=== PATIENT | male | born 1960 | race Caucasian/White ===

== ENCOUNTER 2019-09-28 13:50 | Outpatient (CLI) | payer BC, SELFPAY ==
--- NOTE | ~2019-09-28 | XR_ITS ---
EXAMINATION: XR chest 2V DATE: 09/28/2019 15:30 INDICATION: Hypertension. Preoperative evaluation. TECHNIQUE: PA and lateral views of the chest were obtained. COMPARISON: None FINDINGS: The lungs are clear with no focal airspace opacities, pulmonary edema, pleural effusion or pneumothor ax. The cardiomediastinal silhouette is normal. Multiple chronic appearing compression fractures in t he mid to lower thoracic spine. A few chronic right-sided rib fractures. Partially visualized screw f ixation at the right humeral head likely related to an additional old fracture. IMPRESSION: 1. No acute cardiopulmonary disease. Reviewed, dictated and finalized at location A.
--- NOTE | 2019-09-28 14:55 | ECG_ITS ---
Measurements Intervals [place] Rate: 76 P: 43 [place]: 188 QRS: 15 QRSD: 93 T: 21 QT: 340 QTc: 384 Interpretive Statements SINUS RHYTHM NONSPECIFIC T-WAVE ABNORMALITY- ANTERIOR LEADS BORDERLINE ECG Electronically Signed On 09-28-2019 15:43:30 CDT by Manoj Stroud D.O.
[2019-09-28 15:41] LABS: Basophils Percent Auto 0.8 % (0.2-1.2); Eosinophils Absolute Auto 0.5 K/mm3 (0-0.3); Eosinophils Percent Auto 9.1 % (0-4.4); Hematocrit 41.1 % (42.0-52.0); Hemoglobin 13.9 g/dL (14.0-18.0); Immature Granulocyte Absolute 0.01 K/mm3 (0.00-0.031); Immature Granulocyte Percent A 0.2 % (0-0.5); Lymphocytes Absolute Auto 1.27 K/mm3 (0.9-3.2); Lymphocytes Percent Auto 25.6 % (18.3-44.2); Mean Corpuscular HGB Conc 33.8 g/dl (32-36); Mean Corpuscular Volume 88.8 fl (80-100); Mean Platelet Volume 10.6 fl (7.4-10.4); Monocytes Absolute Auto 0.5 K/mm3 (0.1-0.6); Monocytes Percent Auto 9.7 % (2.6-8.5); Neutrophils Absolute Auto 2.7 K/mm3 (1.3-6.7); Neutrophils Percent Auto 54.6 % (45.5-73.1); Platelet Count Result 194 k/mm3 (150-375); Red Blood Count 4.63 M/mm3 (4.6-6.20); Red Cell Distribution Width 12.9 % (11.5-14.5)
[2019-09-28 15:51] LABS: Albumin Level 4.3 g/dL (3.5-5.1); Urine Cotinine NEGATIVE
[2019-09-28 15:53] LABS: Hemoglobin A1C 5.7 % (<5.7)
[2019-09-28 15:55] LABS: Blood Urea Nitrogen 24 mg/dL (9-20); Calcium 9.1 mg/dL (8.4-10.2); Carbon Dioxide 26 mmol/L (22-30); Chloride 104 mmol/L (98-107); Estimated Glomerular Filt Rate > 60; Glucose 103 mg/dL (75-110); Potassium 4.1 mmol/L (3.4-5.0); Sodium 137 mmol/L (137-145)
== END 2019-09-28 13:51 | disposition home or self-care (01) ==
LOC: ANHSURGERY 13:53
PROVIDERS: Anesthesiology; PCP Family Medicine; Visit Provider Orthopaedic Surgery
DX: Z01.818 Encounter for other preprocedural examination (principal); I10 Essential (primary) hypertension; M17.11 Unilateral primary osteoarthritis, right knee
CPT/HCPCS: 36415; 71046; 80048; 80307; 82040; 83036; 85025; 86850; 86900; 86901; 93005

== ENCOUNTER 2022-11-09 13:59 | Emergency (ER) | payer BC, SELFPAY ==
[2022-11-09 14:15] VITALS: BP 127/62; PULSE 81; RESP 16; TEMP 36.7; O2SAT 96
--- NOTE | 2022-11-09 14:48 | ECG_ITS ---
Measurements Intervals [place] Rate: 75 P: 29 [place]: 171 QRS: 16 QRSD: 101 T: 29 QT: 374 QTc: 419 Interpretive Statements SINUS RHYTHM BORDERLINE T WAVE ABNORMALITY- ANT/INF LEADS BASELINE ARTIFACT- I, II, AVR, AVL BORDERLINE ECG COMPARED TO ECG 09/28/2019 15:38:27 NO SIGNIFICANT CHANGES Electronically Signed On 11-09-2022 15:20:11 CDT by Manoj Stroud D.O.
--- NOTE | 2022-11-09 15:09 | ED.GENADULT ---
HPI - General Adult General Chief complaint: Unspecified Stated complaint: Bodyaches Time Seen by Provider: 11/09/22 14:35 Source: patient and RN notes reviewed Mode of arrival: ambulatory Limitations: no limitations History of Present Illness HPI narrative: Patient presents today complaining of exacerbation of his chronic left rib and shoulder pain that occasionally radiates down his left arm. States that he just weaned himself off chronic caffeine use through his life time and has been off caffeine for 3-4 days completely. He has been sleeping more soundly at night and slept last night for 8 hours without moving, which he has not done in approximately 35 years. He woke up this morning with pain in his rib and shoulder. States he has history of chronic pain in these areas due to multiple fractures and surgeries. Pain increases with deep breath. He has been taking naproxen and Tylenol, which has been providing some relief. He denies chest pain, shortness of breath, abdominal pain, nausea vomiting, sweats, dizziness, lightheadedness, vision changes, numbness or tingling in the extremities. History of hypertension and high cholesterol, but has recently been weaning off of his blood pressure medications by his PCP. Related Data Allergies Allergy/AdvReac Type Severity Reaction Status Date / Time phenytoin Allergy Unknown Other Verified 11/09/22 14:02 Review of Systems Review of Systems: CONSTITUTIONAL: Denies body aches, fever, chills, or sweats. EYES: Denies visual changes, redness, or discharge. ENT: Denies rhinorrhea, congestion, sore throat, or otalgia. CARDIOVASCULAR: Denies chest pain, palpitations, or edema. RESPIRATORY: Denies cough or dyspnea. GASTROINTESTINAL: Denies abdominal pain, nausea, vomiting, or diarrhea. GENITOURINARY: Denies dysuria or hematuria. SKIN: Denies rash, itching, or wounds. MUSCULOSKELETAL:+ left rib and shoulder pain NEUROLOGIC: Denies headache, numbness, tingling, or weakness. PSYCH: Denies depression or anxiety. [facility] Past Medical History Medical History Blood type AB- Obesity Surgical History Surgical History History of arthroplasty of right knee History of total left hip arthroplasty Social History Social History Smoking status: Former smoker Smoking end date: 04/22/91 Alcohol intake: current Substance use type: marijuana Lack of Transportation: No Lack of Food: Never True Current Housing: I Have Housing Concerned About Future Housing: No Difficulty Paying Gas/Electric Bills: No Difficulty Paying for Meds: No Currently Unemployed: No Education: Associate Degree Difficulty w/ Childcare or Family Care: No Comments At time of signature, I have reviewed and agree with nursing past medical, surgical, social and family history unless otherwise noted. Please see nursing chart for further information. There is no relevant family history pertinent to the presenting complaint Exam Narrative: GENERAL: Well-appearing, well-nourished, and in no acute distress. HEAD: Normocephalic, atraumatic. EYES: EOMI. No redness or drainage. Conjunctivae normal. ENT: Mucous membranes pink and moist. NECK: Normal AROM. CHEST: No respiratory distress. Clear to auscultation. HEART: Regular rate and rhythm. No murmur appreciated. Normal peripheral pulses. MUSCULOSKELETAL: No bony tenderness. EXTREMITIES: Mild tenderness about the shoulder and trapezius, and left lateral ribs. Pain increases to left shoulder with range of motion. Distal sensation intact. Capillary refill normal. Radial pulse normal. No color change in the arm. SKIN: Warm, dry, no rash. Capillary refill normal. Normal skin turgor. No sweats noted. NEURO: No focal deficits. Alert and oriented x3. Gait steady. PSYCH: Normal
== END 2022-11-09 15:20 | disposition home or self-care (01) ==
PROVIDERS: Emergency Provider Nurse Practitioner; PCP Family Medicine
DX: G89.29 Other chronic pain (principal); M25.512 Pain in left shoulder; R07.81 Pleurodynia
CPT/HCPCS: 93005; 99213; G0463

== ENCOUNTER 2023-03-11 15:39 | Outpatient (CLI) | payer BC, SELFPAY ==
--- NOTE | ~2023-03-11 | US_ITS ---
EXAMINATION: US venous doppler [facility] DATE: 03/11/2023 17:07 INDICATION: Phlebitis and thrombophlebitis of the left femoral vein TECHNIQUE: Delatorre scale images without and with compression and Doppler images of the left lower extrem ity veins were obtained. COMPARISON: 09/02/2016 FINDINGS: The left common femoral vein, profunda femoral vein, and femoral vein are thrombosed. The p opliteal vein, peroneal trunk, and posterior tibial veins are partially thrombosed. The greater saphe nous vein is patent. IMPRESSION: 1. Deep venous thrombosis of the left lower extremity as detailed above. Reviewed, dictated and finalized at location [facility]
== END 2023-03-11 15:40 | disposition home or self-care (01) ==
PROVIDERS: PCP Family Medicine; Visit Provider Family Medicine
DX: I82.412 Acute embolism and thrombosis of left femoral vein (principal); I82.452 Acute embolism and thrombosis of left peroneal vein; I82.432 Acute embolism and thrombosis of left popliteal vein; I82.442 Acute embolism and thrombosis of left tibial vein
CPT/HCPCS: 93971

== ENCOUNTER 2024-11-25 09:30 | Outpatient (CLI) | payer BC, SELFPAY ==
--- OUTSIDE RECORDS SUMMARY | 2024-11-25 09:58 | XMS_ITS | Clinical Summary ---
Author Organization [facility] Address [address] [place] [address] Care Team Providers Care Car Carder Name Role Phone Simone Hess MD Primary Care Provider [phone] Allergies Active Allergy Reactions Criticality Noted Date Comments Phenytoin Swelling,Other (See comments) Medium 09/05/2016 swollen lymphnodes Swelling Medications carBAMazepine ER (CARBATROL) 300 mg 12 hr capsule Take 1 capsule (300 mg total) by mouth 3 (three) times a day Active atorvastatin (LIPITOR) 10 mg tablet TAKE 1 TABLET BY MOUTH DAILY EVERY NIGHT AT BEDTIME 02/04/2023 Active olmesartan (BENICAR) 40 mg tablet Take 1 tablet (40 mg total) by mouth daily 02/04/2023 Active hydroCHLOROthia zide (HYDRODIURIL) 25 mg tablet Take 1 tablet (25 mg total) by mouth daily 02/04/2023 Active rivaroxaban (Xarelto) 15 mg tablet 20 mg Active tadalafiL (CIALIS) 20 mg tablet TAKE ONE TABLET BY MOUTH ONCE DAILY NEEDED FOR EDEMA. TAKE 30 MINUTES PRIOR TO SEXUAL ACTIVITY 02/04/2023 Active Active Problems Problem Noted Date Diagnosed Date Deep vein thrombosis of left lower limb 04/04/20 23 Assessment & Plan (04/04/2023 12:06 PM [facility]): Impression: Patient was found to have a left lower extremity DVT on venous duplex performed at an outside facility. Patient is currently on Xarelto. Venous duplex was repeated and revealed chronic DVT to the left lower extremity with no new acute DVT. Plan: Discussed with the patient lifelong anticoagulation therapy. -continue utilizing compression therapy for edema control. Discussed with the patient of the potential of chronic left lower extremity edema with a history of DVTs. Patient voices understanding. -recommend patient to follow-up with primary care provider for further evaluation with hematology. -patient to follow-up on an as-needed basis. Primary hypertension 04/04/2023 Assessment & Plan (04/04/2023 12:06 PM [facility]): Impression: Chronic and stable. Plan: Continue hydrochlorothiazide and olmesartan Mixed hyperlipidemia 04/04/2023 Assessment & Plan (04/04/2023 12:07 PM [facility]): Impression: Chronic uncontrolled. Plan: Continue atorvastatin. Chronic deep vein thrombosis (DVT) of femoral vein of left lower extremity 04/10/2017 Carotid stenosis, bilateral 04/04/2017 Deep vein thrombosis (DVT) of left iliofemoral v ein 09/05/2016 Varicose veins of left lower extremity with pain 09/05/2016 Immunizations Immunization Administration Dates Next Due Influenza, Quadrivalent, Rec ombinant, Egg Free, Preservative Free, Intramuscular 01/31/2022,07/20/2021,01/26/2020,02/02 Influenza, Quadrivalent, Spl it, Preservative Free, Intramuscular 01/22/2018 Tdap 07/20/2021 Surgical History Surgery Date Site/Laterality Comments ARTHROPLASTY Right ARTHROPLASTY Left Medical History Medical History Date Comments Obesity Family History Medical History Relation Name Comments COPD Father Atrial fibrillation Mother Relation Name Status Comments Father Mother Alive Social History Tobacco Use Types Packs/Day Years Used Date Smoking Tobacco: Never Assessed Sex and Gender Information Value Date Recorded Sex Assigned at Not on file Legal Sex Male 8:20 PM [facility] Gender Identity Not on file Sexual Orientation Not on file Obstetrics History Last Filed Vital Signs Vital Sign Reading Time Taken Comments Blood Pressure 129/85 04/03/2023 9:05 AM [facility] Pulse 65 04/03/2023 9:05 AM [facility] Temperature 36.7 C (98.1 F) 09/06/2016 9:35 PM CDT Respiratory Rate - - Oxygen Saturation 96% 09/06/2016 9:35 PM CDT Inhaled Oxygen Concentration - - Weight 122.5 kg (270 lb) 04/03/2023 9:05 AM [facility] Height 177.8 cm (5' 10) 04/03/2023 9:05 AM [facility] Body Mass Index 38.74 04/03/2023 9:05 AM [facility] Plan of Treatment Health Maintenance Due Date Last Done Comments Colon Cancer Screening-Colonoscopy 1960 Depression Screening 1960 Hepatitis C Screening 1960 Prostate Cancer Screening-PSA 1960 Hepatitis B Screening 1978 Regular Well Visit/Exam 18-64 1978 Zoster Vaccine (1 of 2) 2010 Covid-19 Vaccine ( season) 2023 04/19/2022, 03/30/2021, 06/25/2020 Influenza Vaccine (#1) 2024 , 07/20/2021, 01/26/2020, Additional history exists DTaP/Tdap/Td Vaccine (2 - Td or Tdap) 07/21/2031 07/20/2021 Pneumococcal vaccine <65 Aged Out No longer eligible based on patient's age to complete this topic Insurance [employer] PPO [place] Care Teams Car Carder Relationship Specialty Start Date End Date Simone Hess MD [address] [place] [address] [address] PCP - General Family Medicine 03/12/23
[2024-11-25 18:07] LABS: Hematocrit 45.3 % (42.0-52.0); Hemoglobin 14.8 g/dL (14.0-18.0); Immature Granulocyte Percent A 0.2 % (0-0.5); Lymphocytes Absolute Auto 1.36 K/mm3 (0.9-3.2); Mean Corpuscular HGB Conc 32.7 g/dl (32-36); Mean Corpuscular Hemoglobin 30.5 pg (26-34); Mean Corpuscular Volume 93.4 fl (80-100); Nucleated Red Blood Cells Absolute Auto 0.000 K/mm3 (0.0-0.012); Nucleated Red Blood Cells Perc 0.0 % (0.0-0.2); Platelet Count Result 191 k/mm3 (150-375); Red Blood Count 4.85 M/mm3 (4.6-6.20); White Blood Count 5.4 K/mm3 (4.5-10.0)
[2024-11-25 18:30] LABS: Alanine Aminotransferase 21 U/L (6-50); Albumin Level 4.3 g/dL (3.5-5.1); Alkaline Phosphatase 91 U/L (38-126); Anion Gap 9 mmol/L (4-12); Aspartate Amino Transferase 37 U/L (17-59); Bilirubin,Total 0.3 mg/dL (0.2-1.3); Blood Urea Nitrogen 30 mg/dL (9-20); Calcium 9.3 mg/dL (8.4-10.2); Carbon Dioxide 27 mmol/L (22-30); Chloride 102 mmol/L (98-107); Cholesterol 224 mg/dL (0-200); Estimated Glomerular Filt Rate > 60; Glucose 92 mg/dL (65-110); HDL Direct 35 mg/dL; Potassium 4.4 mmol/L (3.4-5.0); Sodium 138 mmol/L (137-145); Total Protein 7.5 g/dL (6.3-8.2); Triglycerides 325 mg/dL (<150)
[2024-11-25 19:08] LABS: Prostate Specific Antigen 0.7 ng/mL (< OR = 4.0); Thyroid Stimulating Hormone 1.230 uIU/mL (0.465-4.680)
== END 2024-11-25 09:31 | disposition home or self-care (01) ==
LOC: ANHGOSHLAB 09:31
PROVIDERS: PCP Family Medicine; Visit Provider Nurse Practitioner Family
DX: I82.402 Acute embolism and thrombosis of unspecified deep veins of left lower extremity (principal); E78.00 Pure hypercholesterolemia, unspecified; I10 Essential (primary) hypertension; Z12.5 Encounter for screening for malignant neoplasm of prostate
CPT/HCPCS: 36415; 80053; 80061; 84153; 84443; 85025; G0103